=== PATIENT | male | born 1975 | race Two or more races ===

== ENCOUNTER 2023-09-28 08:20 | Emergency (ER) | payer BC, OTHER ==
[~2023-09-28] VITALS: Ht 170.2 cm; Wt 93.0 kg
[2023-09-28 09:58] VITALS: BP 124/91; PULSE 88; RESP 16; TEMP 97; O2SAT 98
[2023-09-28] MEDS ORDERED: ACYC400T16 PO (10:14)
[2023-09-28] MEDS ORDERED: HYDR-3682 PO (12:24)
[2023-09-28] MEDS ORDERED: TRIA0.1O EX (12:24)
== END 2023-09-28 12:04 | disposition home or self-care (01) ==
LOC: ER 08:20
DX: R23.8 Other skin changes (principal)